=== PATIENT | male | born 1995 | race Caucasian/White ===

== ENCOUNTER 2018-08-28 20:00 | Emergency (ER) | payer OTHER ==
--- NOTE | 2018-08-28 20:23 | Emergency Department Record ---
History of Present Illness - General Chief Complaint: Abdominal Pain Stated Complaint: ABDOMINAL PAIN/VOMITING Time Seen by Provider: 08/28/18 20:18 Source: Patient Mode of Arrival: Ambulatory Limitations: No limitations - History of Present Illness Initial Comments: 23 yo male presents with mid abdominal pain and vomiting. The symptoms started about 4 hours ago. He has felt normal all day prior to that. He has been a mildly constipated recently but no diarrhea. No blood in his vomit. No blood in his stools. No abdominal or GI surgical history. No history of reflux. MD Complaint: Abdominal pain -: Hour(s) (4) Location: Periumbilical Radiation: Other (periumbilical) Migration to: Periumbilical Consistency: Intermittent Improves With: Nothing Worsens With: Eating - Related Data Allergies Allergy/AdvReac Type Severity Reaction Status Date / Time No Known Drug Allergies Allergy Verified 08/28/18 20:21 Review of Systems Constitutional: Denies: Chills, Fever, Malaise, Weakness Eyes: Denies: Eye discharge ENT: Denies: Congestion, Throat pain Respiratory: Denies: Cough, Dyspnea Cardiovascular: Denies: Chest pain, Palpitations, Syncope Endocrine: Denies: Fatigue Gastrointestinal: Reports: Abdominal pain, Constipation, Nausea, Vomiting. Denies: Diarrhea, Hematemesis, Hematochezia, Melena Genitourinary: Denies: Dysuria, Frequency, Hematuria Musculoskeletal: Denies: Arthralgia, Back pain, Myalgia, Neck pain Skin: Denies: Bruising, Change in color, Rash Neurological: Denies: Headache Psychiatric: Denies: Anxiety Hematological/Lymphatic: Denies: Blood Clots, Easy bleeding, Easy bruising Physical Exam - General General Appearance: Alert, Oriented x3, Cooperative, No acute distress Limitations: No limitations - Head Head exam: Atraumatic, Normal inspection - Eye Eye exam: Normal appearance. negative: Conjunctival injection - ENT ENT exam: Normal exam, Mucous membranes moist Ear exam: Normal external inspection Nasal Exam: Normal inspection Mouth exam: Normal external inspection - Neck Neck exam: Normal inspection - Respiratory Respiratory exam: Normal lung sounds bilaterally. negative: Respiratory distress - Cardiovascular Cardiovascular Exam: Regular rate, Normal rhythm, Normal heart sounds - GI/Abdominal GI/Abdominal exam: Soft, Tenderness (very soft, tender mid abdomen, no rebound or guarding, no RLQ tenderness). negative: Distended, Guarding, Rebound, Rigid - Rectal Rectal exam: Deferred - exam: Deferred - Extremities Extremities exam: Normal inspection, Full ROM, Normal capillary refill. negative: Tenderness - Back Back exam: Denies: CVA tenderness (R), CVA tenderness (L) - Neurological Neurological exam: Alert, Oriented X3 - Psychiatric Psychiatric exam: Normal affect, Normal mood - Skin Skin exam: Dry, Intact, Normal color, Warm Course - Reevaluation(s) Reevaluation #1: The CBC demonstrated a WBC count of 26 82% N On the CMP the HCO3 was 17, the AG was 19 The renal function is normal The LFTs are normal The Lipase is normal Given the elevated WBC CT of the abdomen was ordered The patient informed me he has to leave at this time and he is not willing to stay for the CT scan. 08/28/18 22:28 Following discussion with the patient regarding completion of testing the patient reports that he want to leave AMA at this time. The patient was informed the work up is not complete and diagnosis has not be established. He was informed he may have something serious requiring admission, further treatment. Patient verbalizes understanding of all risks and benefits, desires to leave AMA despite these risks. Based on my examination, the patient is alert , oriented, and answers all questions appropriately. Patient appears to have the capacity to make rational decisions based on my examination. Patient was encouraged to return to the ED immediately if they change their mind about treatment and want to be re-evaluated. Medical Decision Making - Lab Data Result diagrams: 08/28/18 21:26 08/28/18 21:26 Disposition Disposition: Discharge Clinical Impression: Abdominal pain, Vomiting, Left against medical advice Disposition: Against Medical Advice Condition: (1) Good Instructions: Acute Nausea and Vomiting (ED), Abdominal Pain (ED), Against Medical Advice (ED) Additional Instructions: Call your doctor for the next available follow up appointment You are signing out AMA due to the fact the testing was not completed Return to the ER for a recheck anytime I encourage your to return tomorrow for a recheck regardless Review this ER visit and the tests performed with your family doctor Forms: Patient Portal Access Time of Disposition: 23:38 Quality - Quality Measures Quality Measures: N/A - Blood Pressure Screening Does Patient Have Any of the Following: No Blood Pressure Classification: Pre-Hypertensive BP Reading Systolic Measurement: 121 Diastolic Measurement: 75 Screening for High Blood Pressure: < Pre-Hypertensive BP, F/U Documented > [ [id number]] Pre-Hypertensive Follow-up Interventions: Referral to alternative/primary care provider.
[2018-08-28] MEDS: ONDANSETRON HCL IV 4 MG/2 ML VIAL IVP ONE (20:50)
[2018-08-28] MEDS: 0.9 % SODIUM CHLORIDE 1,000 ML BAG IV ONE ×2 (20:50→21:56)
[2018-08-28] MEDS: MORPHINE SULFATE 10 MG/ML VIAL IVP ONE (20:50)
[2018-08-28 21:27] LABS: HEMATOCRIT 46.1 % (42.0-52.0); HEMOGLOBIN 15.6 gm/dl (14.0-18.0); MEAN CELL VOLUME 95.8 fl (81-97); MEAN CORPUSCULAR HEMOGLOBIN 32.4 pg (27-33); MEAN CORPUSCULAR HGB CONC 33.8 g/dl (32-36); MEAN PLATELET VOLUME 10.6 fl (7.4-10.4); PLATELET COUNT 255 K/uL (130-400); RED BLOOD COUNT 4.81 M/uL (4.40-5.70); RED CELL DISTRIBUTION WIDTH 14.4 % (11.5-14.5)
[2018-08-28 21:35] LABS: WHITE BLOOD COUNT W/O DIFF 26.3 K/uL (4.2-12.2)
[2018-08-28 21:41] LABS: BLOOD UREA NITROGEN 9 mg/dL (6-20); CREATININE 0.5 mg/dL (0.7-1.2); EST GLOMERULAR FILTRATION RATE > 60 mL/min
[2018-08-28 21:42] LABS: LIPASE 10 U/L (13-60); TOTAL PROTEIN 7.6 g/dL (6.6-8.7)
[2018-08-28] MEDS: ONDANSETRON 4 MG ODT TABLET SL ONE ×2 (21:43→23:43)
[2018-08-28 21:44] LABS: GLUCOSE,RANDOM 105 mg/dL (74-109)
[2018-08-28 21:47] LABS: ALB/GLOB RATIO 1.2 (1.1-1.8); ALBUMIN 4.2 g/dL (4.0-5.0); ALKALINE PHOSPHATASE 89 U/L (55-149); ALT/SGPT 15 U/L (<41); AST/SGOT 17 U/L (10.0-50.0)
[2018-08-28] MEDS: PROMETHAZINE HCL 12.5 MG in 0.9 % SODIUM CHLORIDE 100ML 100 ML IVPB ONE (23:19)
[2018-08-28 23:29] LABS: URINE APPEARANCE CLEAR; URINE BILIRUBIN NEGATIVE (NEGATIVE); URINE BLOOD NEGATIVE (NEGATIVE); URINE COLOR YELLOW; URINE GLUCOSE (UA) NEGATIVE (NEGATIVE); URINE KETONE 40 mg/dL (NEGATIVE); URINE LEUKOCYTE ESTERASE NEGATIVE (NEGATIVE); URINE NITRITE NEGATIVE (NEGATIVE); URINE PROTEIN NEGATIVE (NEGATIVE); URINE UROBILINOGEN 0.2 E.U./dL (0.20 - 1.00)
== END 2018-08-28 23:44 | disposition left against medical advice (07) ==
LOC: ER 20:00
DX: R10.33 Periumbilical pain (principal); R11.11 Vomiting without nausea
CPT/HCPCS: 99284 ×2; 96365; 96375; 96361; 83690; 80053; 81003; 85027; J2405; J2270; J2550; J7030